=== PATIENT | female | born 1980 | race Hispanic/Latino ===

== ENCOUNTER → 2023-04-11 08:11 | Outpatient (CLI) | payer OTHER, SELFPAY ==
--- NOTE | 2023-04-11 | PATH_ITS ---
[facility] Accession Number: [id number] No. of containers..01 Tissue . 01 Material submitted: . breast - RIGHT BREAST 6:00 5CMFN MASS . 01 Diagnosis: Right Breast, 6 o'clock, 5 CMFN Mass, Image-Guided Biopsies: Small fragments of hyalinized fibroepithelial lesion, compatible with fibroadenoma, see comment. Areas with fat necrosis and focal, mild chronic inflammation also present. Negative for significant atypia and malignancy. MRV 04/13/2023 1316 Local . 01 Comment: Multiple deeper levels have been examined with features compatible with fibroadenoma, if radiologic studies concur. There is no evidence of atypia or malignancy on the submitted biopsy. Radiologic correlation is recommended to ensure that the area of interest has been adequately sampled. . As part of ongoing supplier quality, this case is also reviewed by Dr. Tory Lou, who agrees with the interpretation. . 01 Electronically signed: . Lc Stoll MD, Pathologist NPI- [id number] . 01 Gross description: . Received one formalin-filled container labeled with the patient's name and labeled right breast 6 o'clock 5 cm FN. Specimen is received with plastic filter in container and sample loose in container. Specimen consists of multiple yellow-lara pieces of soft tissue which range in size from less than 0.1 cm to 0.6 x 0.4 x 0.3 cm. All fragments are totally submitted in cassette A1. . Possible collection date and time per requisition 04/11/2023 at 0944 hours. Total fixation time approximately 17 hours. ([id number]) /CEDRICK 04/12/2023 0622 Local . 01 Pathologist provided ICD-10: N63.10 . 01 CPT . 604645 Performed at: 01 [facility] [address] [address], [place], [place] [id number] MD Gino Ayers MD Phone: [phone]
--- NOTE | 2023-04-11 08:14 | DI.MG.S_ITS ---
UNILATERAL RIGHT DIGITAL DIAGNOSTIC MAMMOGRAM 3D/2D POST-PROCEDURE IMAGING FOR MARKER PLACEMENT: 04/11/2023 CLINICAL: Post right breast ultrasound biopsy, clip placement imaging. Comparison is made to exams dated: 03/01/2023 mammogram, 03/01/2023 ultrasound, and 02/21/2023 mammogram - outside location. The right breast is heterogeneously dense, which may obscure small masses (category c / 51-75% glandular tissue). There is a marker clip in the appropriate position in the right breast sub-areolar depth inferior region seen on the mediolateral oblique view only 5 cm from the nipple. This marker clip placement is at the biopsy site. IMPRESSION: POST PROCEDURE MAMMOGRAM FOR MARKER PLACEMENT There was a successful marker clip placement in the right breast sub-areolar depth inferior region seen on the mediolateral oblique view only. Based on the Tyrer Cuzick model (a risk assessment model) the patient's lifetime risk is 16.2% and her 10 year risk is 2.6%. According to the ACR, ACS, and NCCN guidelines, an annual breast MRI exam along with mammogram is recommended if the patient's lifetime risk is 20% or greater. This exam was interpreted at Station ID: [id number]. NOTE: For mammograms, a report in lay terms will be sent to the patient. Approximately 15% of breast malignancies will not be visualized mammographically. In the management of a palpable breast mass, a negative mammogram must not discourage biopsy of a clinically suspicious lesion. Electronically Signed By: Conor Amaro M.D. pc/penrad:04/11/2023 13:20:38 ACR BI-RADS Category Post-procedure mammogram for marker placement
--- NOTE | 2023-04-11 08:15 | DI.US.S_ITS ---
ULTRASOUND GUIDED BIOPSY RIGHT BREAST USING VACUUM DEVICE WITH MARKING DEVICES INSERTED: 04/11/2023 CLINICAL: Patient returns today to evaluate a focal asymmetry in the right breast. PATIENT CONSENT: Risks (minor bleeding, infection, vasovagal reaction and repeat procedure), benefits and alternatives were explained to the patient and written informed consent was obtained. Correlation is made to exams dated: 04/11/2023 mammogram - [facility], 03/01/2023 ultrasound, 03/01/2023 mammogram, and 02/21/2023 mammogram - outside location. An ultrasound guided biopsy using real-time ultrasound was performed for the mass located in the right breast at 6 o'clock posterior depth 5 cm from the nipple. The skin was prepped in the usual manner. A biopsy needle was placed adjacent to the abnormality under ultrasound guidance. Once the needle was documented to be in the correct location, a specimen was obtained using a vacuum assisted device. Three clips were inserted into the biopsy cavity. The specimen was sent to the laboratory for pathological analysis. IMPRESSION: ULTRASOUND GUIDED BIOPSY BENIGN Ultrasound guided biopsy of the mass in the right breast at 6 o'clock posterior depth 5 cm from the nipple with placement of three clips was successful. Pathology indicates benign fibroadenoma (FA), fat necrosis (FN), and chronic inflammation. Pathology results are concordant with imaging findings. Return to annual mammogram screening schedule is recommended. This exam was interpreted at Station ID: [id number]. Conor Alonso M.D. pc,aty/:04/18/2023 16:50:15
== END ==
PROVIDERS: Referring Provider Surgery; Visit Provider Surgery
DX: D24.1 Benign neoplasm of right breast
CPT/HCPCS: 19083; 77065